=== PATIENT | female | born 1985 | race Caucasian/White ===

== ENCOUNTER 2017-08-17 16:51 | Emergency (ER) | payer SELFPAY ==
--- NOTE | 2017-08-17 17:17 | EDM.PDOC ---
ED HPI GENERAL MEDICAL PROBLEM - General Chief Complaint: Abdominal Pain Stated Complaint: ABDOMINAL PAIN Time Seen by Provider: 08/17/17 17:11 Source of Information: Reports: Patient History Limitations: Reports: No Limitations - History of Present Illness INITIAL COMMENTS - FREE TEXT/NARRATIVE: HISTORY AND PHYSICAL: [] 32-year-old female presenting with abdominal pain History of Present Illness: [] She reports diarrhea She reports that she has had problems with chronic constipation times she goes weeks without having a bowel movement becomes distended Review of Systems: As per history of present illness and below otherwise all systems reviewed and negative. Past medical history: As per history of present illness and as reviewed below otherwise noncontributory. Surgical history: As per history of present illness and as reviewed below otherwise noncontributory. Social history: No reported history of drug or alcohol abuse. Family history: As per history of present illness and as reviewed below otherwise noncontributory. Physical exam: alert pleasant woman who looks somewhat miserable she is not on control and does not know if she is or not. Answers questions in full sentences without any shortness of breath HEENT: Atraumatic, normocehpalic, pupils reactive, negative for conjunctival pallor or scleral icterus, mucous membranes moist, throat clear, neck supple, nontender, trachea midline. Lungs: Clear to auscultation, breath sounds equal bilaterally, chest non tender. Heart: S1S2, regular, negative for clicks, rubs, or JVD. Abdomen: Soft, nondistended, nontender. Negative for masses or hepatossplenmegaly. Negative for costovertebral tenderness. Pelvis: Stable nontender. Genitourinary: Deferred. Rectal: Deferred Extremities: Atraumatic, negative for cords or calf pain. Neurovascular unremarkable. Neuro: Awake, alert, oriented. Cranial nerves II through XII unremarkable. Cerebellum unremarkable. Motor and sensory unremarkable throughout. Exam nonfocal. Diagnostics: []CBC CMP abdominal flat and upright UA urine hCG Therapeutics: []IV fluids Zofran Impression: [#1 urinary tract infection/cystitis #2 intermitant constipation] Plan: []Home Use mixture of mineral oil, milk of magnesia, and Gaviscon daily Prescription will be sent to [facility] for your urinary tract infection Follow with your primary care provider Return to the emergency room as discussed and directed Definitive disposition and diagnosis as appropriate pending reevaluation and review of above. Onset: Gradual Duration: Day(s):, Getting Worse Location: Reports: Abdomen Quality: Reports: Ache, Throbbing Severity: Moderate Improves with: Reports: None Worsens with: Reports: None abdomen Pain Score (Numeric/FACES): 5 - Related Data Allergies Allergy/AdvReac Type Severity Reaction Status Date / Time No Known Allergies Allergy Verified 08/17/17 17:02 Home Meds: Home Meds Ciprofloxacin [Cipro 500 MG/5 ML Susp] 500 mg PO Q12HR #10 bottle 08/17/17 [Rx] Past Medical History - Past Health History Medical/Surgical History: Denies Medical/Surgical History Gastrointestinal History: Reports: Chronic Constipation - Infectious Disease History Infectious Disease History: Reports: Chicken Pox Social & Family History - Family History Other Dermatologic Family History: CA, Hepatits - Tobacco Use Smoking Status *Q: Never Smoker - Recreational Drug Use Recreational Drug Use: No ED ROS GENERAL - Review of Systems Review Of Systems: ROS reveals no pertinent complaints other than HPI. ED EXAM, GI/ABD - Physical Exam Exam: See Below (see dictation) Course - Vital Signs Last Recorded V/S: Last Vital Signs Temp 36.5 C 08/17/17 16:59 Pulse 92 08/17/17 16:59 Resp 18 08/17/17 16:59 BP 120/57 L 08/17/17 16:59 Pulse Ox 100 08/17/17 16:59 - Orders/Labs/Meds Orders: Active Orders 24 hr Category Date Time Status Abdomen 2V AP Flat Upright [CR] Stat Exams 08/17/17 17:13 Taken HCG QUALITATIVE,URINE [URCHEM] Stat Lab 08/17/17 17:38 Ordered UA W/MICROSCOPIC [URIN] Stat Lab 08/17/17 17:38 Ordered Labs: Laboratory Tests 08/17/17 08/17/17 08/17/17 Range/Units 17:24 17:24 17:38 WBC 12.46 H (4.0-11.0) K/uL RBC 4.89 (4.30-5.90) M/uL Hgb 14.8 (12.0-16.0) g/dL Hct 42.4 (36.0-46.0) % MCV 86.7 (80.0-98.0) fL MCH 30.3 (27.0-32.0) pg MCHC 34.9 (31.0-37.0) g/dL RDW Std Deviation 42.4 (28.0-62.0) fl RDW Coeff of Sergey 13 (11.0-15.0) % Plt Count 336 (150-400) K/uL MPV 10.00 (7.40-12.00) fL Neut % (Auto) 76.5 (48.0-80.0) % Lymph % (Auto) 12.0 L (16.0-40.0) % Franklin % (Auto) 10.2 (0.0-15.0) % Eos % (Auto) 1.1 (0.0-7.0) % Baso % (Auto) 0.2 (0.0-1.5) % Neut # (Auto) 9.5 H (1.4-5.7) K/uL Lymph # (Auto) 1.5 (0.6-2.4) K/uL Franklin # (Auto) 1.3 H (0.0-0.8) K/uL Eos # (Auto) 0.1 (0.0-0.7) K/uL Baso # (Auto) 0.0 (0.0-0.1) K/uL Nucleated RBC % 0.0 /100WBC Nucleated RBCs # 0 K/uL Sodium 134 L (136-145) mmol/L Potassium 4.0 (3.5-5.1) mmol/L Chloride 101 (98-107) mmol/L Carbon Dioxide 23.2 (21.0-32.0) mmol/L BUN 9 (7.0-18.0) mg/dL Creatinine 1.0 (0.6-1.0) mg/dL Est Cr Clr Drug Dosing 68.05 mL/min Estimated GFR (MDRD) > 60.0 ml/min Glucose 109 H (74-106) mg/dL Calcium 8.9 (8.5-10.1) mg/dL Total Bilirubin 0.3 (0.2-1.0) mg/dL AST 16 (15-37) IU/L ALT 18 (14-63) IU/L Alkaline Phosphatase 48 (46-116) U/L Total Protein 8.6 H (6.4-8.2) g/dL Albumin 4.1 (3.4-5.0) g/dL Globulin 4.5 H (2.0-3.5) g/dL Albumin/Globulin Ratio 0.9 L (1.3-2.8) Urine Color DARK YELLOW Urine Appearance CLOUDY Urine pH 5.5 (5.0-8.0) Ur Specific [place] >= 1.030 (1.001-1.035) Urine Protein 30 (NEGATIVE) mg/dL Urine Glucose (UA) NEGATIVE (NEGATIVE) mg/dL Urine Ketones NEGATIVE (NEGATIVE) mg/dL Urine Occult Blood LARGE H (NEGATIVE) Urine Nitrite NEGATIVE (NEGATIVE) Urine Bilirubin SMALL H (NEGATIVE) Urine Ictotest NEGATIVE Urine Urobilinogen 0.2 (<2.0) EU/dL Ur Leukocyte Esterase SMALL (NEGATIVE) Urine RBC 4-8 (0-2/HPF) Urine WBC 25-35 (0-5/HPF) Ur Epithelial Cells FEW (NONE-FEW) Amorphous Sediment LIGHT (NEGATIVE) Urine Bacteria 2+ H (NEGATIVE) Urine Mucus LIGHT (NONE-MOD) Urine HCG, Qual (NEGATIVE) 08/17/17 Range/Units 17:38 WBC (4.0-11.0) K/uL RBC (4.30-5.90) M/uL Hgb (12.0-16.0) g/dL Hct (36.0-46.0) % MCV (80.0-98.0) fL MCH (27.0-32.0) pg MCHC (31.0-37.0) g/dL RDW Std Deviation (28.0-62.0) fl RDW Coeff of Sergey (11.0-15.0) % Plt Count (150-400) K/uL MPV (7.40-12.00) fL Neut % (Auto) (48.0-80.0) % Lymph % (Auto) (16.0-40.0) % Franklin % (Auto) (0.0-15.0) % Eos % (Auto) (0.0-7.0) % Baso % (Auto) (0.0-1.5) % Neut # (Auto) (1.4-5.7) K/uL Lymph # (Auto) (0.6-2.4) K/uL Franklin # (Auto) (0.0-0.8) K/uL Eos # (Auto) (0.0-0.7) K/uL Baso # (Auto) (0.0-0.1) K/uL Nucleated RBC % /100WBC Nucleated RBCs # K/uL Sodium (136-145) mmol/L Potassium (3.5-5.1) mmol/L Chloride (98-107) mmol/L Carbon Dioxide (21.0-32.0) mmol/L BUN (7.0-18.0) mg/dL Creatinine (0.6-1.0) mg/dL Est Cr Clr Drug Dosing mL/min Estimated GFR (MDRD) ml/min Glucose (74-106) mg/dL Calcium (8.5-10.1) mg/dL Total Bilirubin (0.2-1.0) mg/dL AST (15-37) IU/L ALT (14-63) IU/L Alkaline Phosphatase (46-116) U/L Total Protein (6.4-8.2) g/dL Albumin (3.4-5.0) g/dL Globulin (2.0-3.5) g/dL Albumin/Globulin Ratio (1.3-2.8) Urine Color Urine Appearance Urine pH (5.0-8.0) Ur Specific [place] (1.001-1.035) Urine Protein (NEGATIVE) mg/dL Urine Glucose (UA) (NEGATIVE) mg/dL Urine Ketones (NEGATIVE) mg/dL Urine Occult Blood (NEGATIVE) Urine Nitrite (NEGATIVE) Urine Bilirubin (NEGATIVE) Urine Ictotest Urine Urobilinogen (<2.0) EU/dL Ur Leukocyte Esterase (NEGATIVE) Urine RBC (0-2/HPF) Urine WBC (0-5/HPF) Ur Epithelial Cells (NONE-FEW) Amorphous Sediment (NEGATIVE) Urine Bacteria (NEGATIVE) Urine Mucus (NONE-MOD) Urine HCG, Qual NEGATIVE (NEGATIVE) Departure - Departure Time of Disposition: 19:19 Disposition: Home, Self-Care 01 Condition: Good Clinical Impression: UTI (urinary tract infection) Qualifiers: Urinary tract infection type: acute cystitis Hematuria presence: with hematuria Qualified Code(s): N30.01 - Acute cystitis with hematuria - Discharge Information Prescriptions: Ciprofloxacin [Cipro 500 MG/5 ML Susp] 500 mg PO Q12HR #10 bottle Instructions: Urinary Tract Infection, Adult, Constipation, Adult, [id number] Referrals: PCP,None [Primary Care Provider] - Forms: ED Department Discharge Additional Instructions: The following information is given to patients seen in the emergency department who are being discharged to home. This information is to outline your options for follow-up care. We provide all patients seen in our emergency department with a follow-up referral. The need for follow-up, as well as the timing and circumstances, are variable depending upon the specifics of your emergency department visit. If you don't have a primary care physician on staff, we will provide you with a referral. We always advise you to contact your personal physician following an emergency department visit to inform them of the circumstance of the visit and for follow-up with them and/or the need for any referrals to a consulting specialist. The emergency department will also refer you to a specialist when appropriate. This referral assures that you have the opportunity for followup care with a specialist. All of these measure are taken in an effort to provide you with optimal care, which includes your followup. Under all circumstances we always encourage you to contact your private physician who remains a resource for coordinating your care. When calling for followup care, please make the office aware that this follow-up is from your recent emergency room visit. If for any reason you are refused follow-up, please contact the [facility] emergency department at and asked to speak to the emergency department charge nurse. You have a urinary tract infection Reported constipation Prescription for your infection has been sent to [place] pharmacy Ciprofloxacin 500 mg twice a day for 5 days Combination of mineral oil, Gaviscon, and milk of magnesia daily 1 tablespoon of each mix together and drink Follow up with your primary care provider Return to the emergency room as directed and discussed - My Orders Last 24 Hours: My Active Orders 08/17/17 17:13 Abdomen 2V AP Flat Upright [CR] Stat 08/17/17 17:38 HCG QUALITATIVE,URINE [URCHEM] Stat UA W/MICROSCOPIC [URIN] Stat - Assessment/Plan Last 24 Hours: My Active Orders 08/17/17 17:13 Abdomen 2V AP Flat Upright [CR] Stat 08/17/17 17:38 HCG QUALITATIVE,URINE [URCHEM] Stat UA W/MICROSCOPIC [URIN] Stat
[2017-08-17 18:01] LABS: CHLORIDE,CL 101 mmol/L (98-107); SODIUM,NA 134 mmol/L (136-145)
--- NOTE | 2017-08-18 13:37 | CR ---
EXAM DATE: 08/17/17 PATIENT'S AGE: 32 Patient: MARK ANTHONY FLOREZ Facility: [place], [place] Site . Site : 1985 Study: XRay Abdomen/Pelvis [id number]/25/2018 6:54:46 PM Ordering Physician: Doctor Scherer Final Report: INDICATION: Abdominal pain TECHNIQUE: Abdomen 3 view COMPARISON: None FINDINGS: Bowel: Nonobstructive bowel gas pattern. Soft tissues: No sign of soft tissue mass. No suspicious calcifications. Pelvic phleboliths. Bones: Unremarkable for age. IMPRESSION: Nonobstructive bowel gas pattern. Dictated by Napoleon Manriquez MD @ 08/17/2017 7:09:02 PM Dictated by: Napoleon Manriquez MD @ 08/17/2017 19:09:07 (Electronic Signature) Report Signed by Proxy. [facility] LAWR[facility] HEALTH SYSTEMGisella
== END 2017-08-17 19:33 | disposition home or self-care (01) ==
LOC: MW.ED 16:51
DX: N30.01 Acute cystitis with hematuria (principal); K59.00 Constipation, unspecified
CPT/HCPCS: 36415; 74019; 74019-26; 80053; 81001; 81025; 85025; 99284

== ENCOUNTER 2018-05-26 15:53 | Inpatient (IN) | payer SELFPAY ==
--- NOTE | 2018-05-26 17:44 | US ---
INDICATION: Decreased movement. Segun Rice contractions. TECHNIQUE: Ultrasound OB pelvis transabdominal. Real-time sen-scale imaging of the fetus was performed with color Doppler and spectral Doppler analysis of the umbilical artery without stress testing. COMPARISON: None. FINDINGS: Sonographic imaging demonstrates a single living intrauterine gestation. Fetus demonstrates a regular cardiac rate of 111 beats per minute. Fetus has a cephalic orientation. The placenta lies anterior. Amniotic fluid volume appears low with an MARTÍN of 4.76 cm. motion and tone were observed. breathing was not observed. IMPRESSION: Single viable intrauterine with a biophysical profile 09/30. breathing was not observed during the exam. Low MARTÍN measuring 4.76 cm. Dictated by Neno Calzada MD @ May 26 2018 5:38PM Signed by Dr. Neno Calzada @ May 26 2018 5:43PM
[2018-05-26] MEDS ORDERED: Water For Irrigation,Sterile 1,000 ML Container IRR PRN (17:48)
[2018-05-26] MEDS ORDERED: Sodium Chloride 0.9% 2.5 ML Syringe FLUSH PRN (17:48)
[2018-05-26] MEDS ORDERED: Methylergonovine 0.2 MG/1 ML Amp IM PRN (17:48)
[2018-05-26] MEDS ORDERED: Misoprostol 200 MCG Tab PO PRN (17:48)
[2018-05-26] MEDS ORDERED: Nalbuphine 10 MG/1 ML Vial IVPUSH PRN (17:48)
[2018-05-26] MEDS ORDERED: Carboprost Tromethamine 250 MCG/1 ML Amp IM PRN (17:48)
[2018-05-26] MEDS ORDERED: Terbutaline 1 MG/ML SDV SUBCUT PRN (17:48)
[2018-05-26] MEDS ORDERED: Lidocaine 1% 50 ML MDV INJECT PRN (17:48)
[2018-05-26] MEDS ORDERED: Sodium Chloride 0.9% 10 ML Syringe FLUSH PRN (17:48)
[2018-05-26] MEDS ORDERED: Butorphanol 1 MG/ML SDV IVPUSH PRN (17:48)
[2018-05-26] MEDS ORDERED: Tranexamic Acid 1,000 MG in Sodium Chloride 0.9% 100 ML IV PRN (17:48)
--- NOTE | 2018-05-26 17:55 | PCM.LDHP ---
L&D History of Present Illness - General Date of Service: 05/26/18 Admit Problem/Dx: Patient Status Order with Admit Dx/Problem 05/26/18 16:11 Patient Status [ADT] Routine Admission Diagnosis/Problem Admission Diagnosis/Problem 05/26/18 17:46 33yo EDC 06/19/2018 36 4/7wks, O+, RI, GBS unkwn, MARTÍN 4.8cm, low FHT baseline 110 bpm Source of Information: Patient History Limitations: Reports: No Limitations - History of Present Illness Improves with: Reports: None Worsens with: Reports: None Associated Symptoms: Reports: N - Related Data Allergies/Adverse Reactions: Allergies Allergy/AdvReac Type Severity Reaction Status Date / Time No Known Allergies Allergy Verified 08/17/17 17:02 Past Medical History - Past Health History Medical/Surgical History: Denies Medical/Surgical History Gastrointestinal History: Reports: Chronic Constipation - Infectious Disease History Infectious Disease History: Reports: Chicken Pox Social & Family History - Family History Other Dermatologic Family History: CA, Hepatits H&P Review of Systems - Review of Systems: Review Of Systems: See Below General: Reports: No Symptoms HEENT: Reports: No Symptoms Pulmonary: Reports: No Symptoms Cardiovascular: Reports: No Symptoms Gastrointestinal: Reports: No Symptoms Genitourinary: Reports: No Symptoms Musculoskeletal: Reports: No Symptoms Skin: Reports: No Symptoms Psychiatric: Reports: No Symptoms Neurological: Reports: No Symptoms Hematologic/Lymphatic: Reports: No Symptoms Immunologic: Reports: No Symptoms L&D Exam - Exam Exam: See Below - Vital Signs Weight: 71.668 kg - OB Specific Contraction Intensity: Mild Movement: Active Heart Tones: Present Heart Tones per Min: 110 Heart Rate (FHR) Variability: Moderate (6-25 bmp) Presentation: Vertex - Peañ Score Peña Score Cervix Position: Midposition Peña Score Consistency: Soft Peña Score Effacement: >80% Peña Score Dilation: 1-2 cm Peña Score Infant's Station: -1 ,0 Peña Score Total: 9 - Exam General: Alert, Oriented, Cooperative HEENT: Hearing Intact Lungs: Clear to Auscultation, Normal Respiratory Effort Cardiovascular: Regular Rate, Regular Rhythm, Normal S1, Normal S2 GI/Abdominal Exam: Soft, Non-Tender Rectal Exam: Deferred Genitourinary: Normal external exam, Normal bimanual exam, Cervical dilitation Back Exam: Normal Inspection, Full Range of Motion Extremities: Normal Inspection, Normal Range of Motion, Non-Tender, No Pedal Edema, Normal Capillary Refill Skin: Warm, Dry, Intact Neurological: Cranial Nerves Intact, Reflexes Equal Bilateral, Strength Equal Bilateral, Normal Speech, Normal Tone Psychiatric: Alert, Normal Affect, Normal Mood - Problem List (1) Supervision of normal IUP (intrauterine ) in multigravida SNOMED Code(s): 479498601, 608766207, 747564277 ICD Code: Z34.80 - ENCOUNTER FOR SUPRVSN OF NORMAL , UNSP TRIMESTER Status: Acute Priority: High Current Visit: Yes Qualifiers: Trimester: third trimester Qualified Code(s): Z34.83 - Encounter for supervision of other normal , third trimester (2) Oligohydramnios antepartum SNOMED Code(s): 947668593 ICD Code: O41.00X0 - OLIGOHYDRAMNIOS, UNSP TRIMESTER, NOT APPLICABLE OR UNSP Status: Acute Priority: High Current Visit: Yes Qualifiers: Fetus number: single or unspecified fetus Qualified Code(s): O41.00X0 - Oligohydramnios, unspecified trimester, not applicable or unspecified Problem List Initiated/Reviewed/Updated: Yes Orders Last 24hrs: Active Orders 24 hr Category Date Time Status Patient Status [ADT] Routine ADT 05/26/18 16:11 Active Non Stress Test [RC] PER UNIT ROUTINE Care 05/26/18 16:11 Active Up ad Neli [RC] ASDIRECTED Care 05/26/18 16:11 Active Vaginal Exam [RC] Click to Edit Care 05/26/18 16:11 Active Vital Signs [RC] PER UNIT ROUTINE Care 05/26/18 16:11 Active CULTURE GROUP B STREP [RM] Routine Lab 05/26/18 16:45 Received Resuscitation Status Routine Resus Stat 05/26/18 16:11 Ordered Assessment/Plan Comment:: IOL for Oligohydramnios A: 33yo EDC 06/19/2018 36 4/7wks, O+, RI, GBS unkwn, MARTÍN 4.8cm, low FHT baseline 110 bpm P: Admit, pitocin induction, amp for GBS unkwn, anticipate , Dr Beard agrees with POC.
[2018-05-26] MEDS ORDERED: Oxytocin/0.9 % Sodium Chloride 30 UNIT/500 ML BAG IV SCH ×2 (18:00)
[2018-05-26] MEDS ORDERED: Diphtheria,Pertussis(Acell),Tetanus Vaccine 0.5 ML Syringe IM ONE (19:01)
[2018-05-26] MEDS ORDERED: Ampicillin 2 GM in Sodium Chloride 0.9% 100 ML IV ONE (19:30)
[2018-05-26] MEDS: Lactated Ringers 1,000 ML IV SCH (19:42)
--- NOTE | 2018-05-26 22:15 | PCM.PREANE ---
Preanesthetic Assessment - Procedure Proposed Procedure: for labor epidural - Anesthesia/Transfusion/Family Hx Anesthesia History: Prior Anesthesia Without Reaction (dental surgery in office without problems No history of GA) Family History of Anesthesia Reaction: No Transfusion History: No Prior Transfusion(s) - Review of Systems General: No Symptoms (oligohydramnios, low FHT baseline (110/min), , 36.5 wks), Other (At the time of this interview, FHT was 150s (patient has been in house 24 hrs)) Pulmonary: No Symptoms Cardiovascular: No Symptoms (Heart murmur as a child which disappeared on its own after a few years. No signs or symptoms at present) Gastrointestinal: No Symptoms (constipation, chronic) Neurological: No Symptoms Other: Reports: None (36.5 weeks) - Physical Assessment NPO Status Date: 05/27/18 NPO Status Time: 10:00 (ice and water since then) Pulse: 81 (has had one liter LR IV recently) O2 Sat by Pulse Oximetry: 95 Respiratory Rate: 20 Blood Pressure: 109/56 Temperature: 0 C Vital Signs: 150s for FHT at this time Height: 1.6 m Weight: 71.668 kg ASA Class: 2E Mental Status: Alert & Oriented x3 Airway Class: Mallampati = 1 Dentition: Reports: Normal Dentition Thyro-Mental Finger Breadths: 2 Mouth Opening Finger Breadths: 3 ROM/Head Extension: Full Lungs: Clear to Auscultation, Normal Respiratory Effort Cardiovascular: Regular Rate, Regular Rhythm, No Murmurs - Lab Values: Laboratory Last Values WBC 14.24 K/uL (4.0-11.0) H 05/26/18 18:35 RBC 4.18 M/uL (4.30-5.90) L 05/26/18 18:35 Hgb 12.5 g/dL (12.0-16.0) 05/26/18 18:35 Hct 36.2 % (36.0-46.0) 05/26/18 18:35 MCV 86.6 fL (80.0-98.0) 05/26/18 18:35 MCH 29.9 pg (27.0-32.0) 05/26/18 18:35 MCHC 34.5 g/dL (31.0-37.0) 05/26/18 18:35 RDW Std Deviation 43.0 fl (28.0-62.0) 05/26/18 18:35 RDW Coeff of Sergey 14 % (11.0-15.0) 05/26/18 18:35 Plt Count 270 K/uL (150-400) 05/26/18 18:35 MPV 12.00 fL (7.40-12.00) 05/26/18 18:35 Nucleated RBC % 0.0 /100WBC 05/26/18 18:35 Nucleated RBCs # 0 K/uL 05/26/18 18:35 Blood Type O POSITIVE 05/26/18 18:35 Antibody Screen NEGATIVE 05/26/18 18:35 - Allergies Allergies/Adverse Reactions: Allergies Allergy/AdvReac Type Severity Reaction Status Date / Time No Known Allergies Allergy Verified 08/17/17 17:02 - Blood Blood Available: No Product(s) Available: None - Anesthesia Plan Pre-Op Medication Ordered: None - Acknowledgements Anesthesia Type Planned: Epidural (Plan: continuous labor epidural. discussed with patient and . All questions answered. Consent signed.) Pt an Appropriate Candidate for the Planned Anesthesia: Yes Alternatives and Risks of Anesthesia Discussed w Pt/Guardian: Yes Pt/Guardian Understands and Agrees with Anesthesia Plan: Yes PreAnesthesia Questionnaire - Past Health History Medical/Surgical History: Denies Medical/Surgical History Cardiovascular History: Reports: Heart Murmur Other Cardiovascular History: heart murmur as child 'that closed as an early teen' Gastrointestinal History: Reports: Chronic Constipation - Infectious Disease History Infectious Disease History: Reports: Chicken Pox - Past Surgical History HEENT Surgical History: Reports: Oral Surgery - SUBSTANCE USE Smoking Status *Q: Never Smoker Second Hand Smoke Exposure: Yes - CURRENT (IN HOUSE) MEDS Current Meds: Current Medications Butorphanol Tartrate (Stadol) 1 mg IVPUSH Q1H PRN PRN Reason: Pain Carboprost Tromethamine (Hemabate Ds) 250 mcg IM ASDIRECTED PRN PRN Reason: Post Hemorrhage Tranexamic Acid 1,000 mg/ (Sodium Chloride) 110 mls @ 660 mls/hr IV ONETIME PRN PRN Reason: Bleeding Lactated Ringer's (Ringers, Lactated) 1,000 mls @ 150 mls/hr IV ASDIRECTED AISLINN Last Admin: 05/26/18 19:42 Dose: 150 mls/hr Oxytocin/Sodium Chloride (Oxytocin 30 Unit/500 Ml-Ns) 30 unit in 500 mls @ 500 mls/hr IV TITRATE AISLINN Oxytocin/Sodium Chloride (Oxytocin 30 Unit/500 Ml-Ns) 30 unit in 500 mls @ 2 mls/hr IV TITRATE AISLINN; Protocol Last Titration: 05/26/18 20:28 Dose: 4 munits/min, 4 mls/hr Ampicillin Sodium 1 gm/ Sodium (Chloride) 50 mls @ 100 mls/hr IV Q6H AISLINN Lidocaine HCl (Xylocaine 1%) 50 ml INJECT ONETIME PRN PRN Reason: Laceration repair Methylergonovine Maleate (Methergine) 0.2 mg IM ASDIRECTED PRN PRN Reason: Post Hemorrhage Misoprostol (Cytotec) 200 mcg PO ONETIME PRN PRN Reason: Post Hemorrhage Nalbuphine HCl (Nubain) 10 mg IVPUSH Q1H PRN PRN Reason: Pain (severe 7-10) Sodium Chloride (Saline Flush) 10 ml FLUSH ASDIRECTED PRN PRN Reason: Keep Vein Open Sodium Chloride (Saline Flush) 2.5 ml FLUSH ASDIRECTED PRN PRN Reason: Keep Vein Open Sterile Water (Sterile Water For Irrigation) 1,000 ml IRR ASDIRECTED PRN PRN Reason: delivery Terbutaline Sulfate (Brethine) 0.25 mg SUBCUT ASDIRECTED PRN PRN Reason: Tacysystole Discontinued Medications Diphtheria/Tetanus/Acell Pertussis (Adacel) 0.5 ml IM .ONCE ONE Stop: 05/26/18 19:02 Ampicillin Sodium 2 gm/ Sodium (Chloride) 100 mls @ 200 mls/hr IV ONETIME ONE Stop: 05/26/18 19:59 Last Admin: 05/26/18 19:42 Dose: 200 mls/hr
[2018-05-27] MEDS: Ampicillin 1 GM in Sodium Chloride 0.9% 50 ML IV SCH ×3 (00:59→13:21)
[2018-05-27] MEDS: Lactated Ringers 1,000 ML IV SCH ×4 (03:20→23:07)
[2018-05-27] MEDS ORDERED: Lidocaine HCl/EPINEPHrine 5 ML IJ ONE (12:44)
[2018-05-27] MEDS ORDERED: Lidocaine 2% 5 ML SDV ONE ×5 (13:46→19:29)
[2018-05-27] MEDS ORDERED: Propofol 200 MG/20 ML SDV ONE (17:57)
[2018-05-27] MEDS ORDERED: ceFAZolin 1 GM Vial ONE ×2 (17:57→17:58)
[2018-05-27] MEDS ORDERED: Sodium Chloride 0.9% 20 ML ONE (17:58)
[2018-05-27] MEDS ORDERED: Citric Acid/Sodium Citrate Solution 30 ML Cup PO ONE (18:06)
[2018-05-27] MEDS ORDERED: Nalbuphine 10 MG/1 ML Vial IVPUSH PRN ×2 (18:10→19:50)
[2018-05-27] MEDS ORDERED: Lactated Ringers 1,000 ML IV SCH (18:15)
[2018-05-27] MEDS ORDERED: Oxytocin/0.9 % Sodium Chloride 30 UNIT/500 ML BAG IV SCH (18:15)
[2018-05-27] MEDS ORDERED: Morphine PF 10 MG/10 ML SDV ONE (19:07)
[2018-05-27] MEDS ORDERED: fentaNYL 100 MCG/2 ML SDV ONE (19:17)
[2018-05-27] MEDS ORDERED: Octyl 2-Cyanoacrylate 1 Tube ONE (19:19)
[2018-05-27] MEDS ORDERED: Ondansetron 4 MG/2 ML SDV IVPUSH PRN (19:22)
[2018-05-27] MEDS ORDERED: Bisacodyl 10 MG Supp RECTAL PRN (19:22)
[2018-05-27] MEDS ORDERED: Acetaminophen/oxyCODONE 325-5 MG Tab PO PRN ×2 (19:22)
[2018-05-27] MEDS ORDERED: diphenhydrAMINE 50 MG/ML SDV IVPUSH PRN (19:22)
[2018-05-27] MEDS ORDERED: Lanolin 100% Cream 7 GM Tube TOP PRN (19:22)
--- NOTE | 2018-05-27 19:27 | PCM.OPNOTE ---
- General Post-Op/Procedure Note Date of Surgery/Procedure: 05/27/18 Operative Procedure(s): Primary c/section Pre Op Diagnosis: [id number] wks non ressurance FAR Post-Op Diagnosis: Same Anesthesia Technique: Epidural Primary Surgeon: Juan Luis Beard Funding Coordinator: Radha Mathews EBL in mLs: 700 Complications: None Condition: Good
[2018-05-27] MEDS ORDERED: Ketorolac 30 MG/ML SDV ONE (19:33)
--- NOTE | 2018-05-27 19:55 | PCM.SN ---
- Free Text/Narrative Note: patient has good functioning epidural for labor. Decision to go to for failure to progress and some late decels. Epidural woriking well. Re -dosed with 15 ml 2% lido incrementally with stable BP and HR and FHT. To OR.
[2018-05-27] MEDS ORDERED: Meperidine PF 25 MG/ML Syringe IVPUSH PRN (20:00)
[2018-05-27] MEDS ORDERED: Ondansetron 4 MG/2 ML SDV IVPUSH ONE (20:00)
--- NOTE | 2018-05-27 20:19 | PCM.POSTAN ---
POST ANESTHESIA ASSESSMENT - MENTAL STATUS Mental Status: Alert, Oriented - VITAL SIGNS Pulse Rate: 77 SaO2: 98 Resp Rate: 18 Blood Pressure: 119/69 Temperature: 36.7 C - RESPIRATORY Respiratory Status: Respiratory Rate WNL, Airway Patent, O2 Saturation Stable - CARDIOVASCULAR CV Status: Pulse Rate WNL, Blood Pressure Stable - GASTROINTESTINAL GI Status: No Symptoms - PAIN Pain Score: 6 (no pain, but "just like a burning". Resting comfortably.) - POST OP HYDRATION Hydration Status: Adequate & Stable - OBSERVATIONS Free Text/Narrative:: awake, alert, vitals stable. epidural catheter removed in OR intact. Patient has no pain--just a "burning" on left side. Has had 3mg epidural duramorph and 6mg morphine IV in addition to 100 mcg fentanyl IV (all in OR). Anxious pre, intra and post op. Doing very well. Analgesia level below T 10.
--- NOTE | 2018-05-27 20:33 | OR ---
SURGEON: Juan Luis Beard MD DATE OF PROCEDURE: PREOPERATIVE DIAGNOSES: 1. Intrauterine 36 weeks plus. 2. Nonreassuring heart rate. POSTOPERATIVE DIAGNOSES: 1. Intrauterine 36 weeks plus. 2. Nonreassuring heart rate. OPERATION PERFORMED: Primary low transverse section. FEED MIXER: Radha Mathews CNM. ANESTHESIA: Epidural. ANESTHESIOLOGIST: Dr. Wood. ESTIMATED BLOOD LOSS: 700 mL. COMPLICATIONS: None, however, there is mild extension laterally of the low transverse section incision. INDICATIONS FOR SURGERY: This patient is para 1-0-0-1, she is 36 weeks plus. She is followed in our clinic. She came to Labor and Delivery, is complaining of having contraction. However, when the patient was placed on the monitor, she had a flat heart rate, so biophysical profile was performed and she had decreased amniotic fluid and she has 4/8 biophysical profile as grading. The patient was admitted with intention of induction and she is induced with Pitocin. Initially she responded to it. She progressed to 4 cm, complete vertex, and zero station. However, the patient again started having a flat heart rate with a nonreassuring heart rate with variable deceleration and she did not tolerate the Pitocin well and she is remote from delivery and decision made to do a primary low-transverse section. PROCEDURE IN DETAIL: The patient was brought to the OR, properly identified, and after adequate level of the epidural anesthesia with a Bustamante catheter in the bladder, the patient was prepped and draped in sterile fashion, usual low transverse Pfannenstiel skin incision was done. Sara fascia and rectus fascia were opened in the direction of the incision. The 2 recti muscles were and peritoneal cavity was entered and bladder flap raised in the usual manner pushing the bladder away from the lower uterine segment. Low transverse uterine incision was done, extended manually in the fetus. The fetus head was in the vertex, however, it was engaged deeply in the vagina, so I maneuvered to pull the head from the vagina and delivered out and once the fetus was delivered, cried immediately, handed to Dr. Castillo, the welder fabricator who was present for the resuscitation. Later on the score reported to be 7 and 9. The placenta delivered spontaneous, complete, and intact, and I started repairing of the lower uterine segment. I noticed that there is a left lateral extension of the section incision that was identified and the lower uterine segment was repaired with 2-0 Vicryl continuous interlocking with hemostasis. Then reperitonealization done with 3-0 Vicryl continuous and then the peritoneal cavity evacuated completely from all blood and blood clot and closed with 3-0 Vicryl continuous and the rectus fascia closed with #1 PDS continuous, Sara's fascia with 3-0 Vicryl continuous. The skin closed in a subcuticular fashion with 3-0 Vicryl and Dermabond. Instrument and sponge count were correct. The patient tolerated the procedure well, went to recovery room in stable general condition. CHARLETTE CUNNINGHAM /[id number]
[2018-05-28] MEDS: Ketorolac 30 MG/ML SDV IVPUSH SCH ×6 (01:41→20:02)
[2018-05-28] MEDS: Ampicillin 1 GM in Sodium Chloride 0.9% 50 ML IV SCH ×2 (03:55→17:05)
[2018-05-28] MEDS ORDERED: Morphine 4 MG/ML Syringe IVPUSH ONE (06:42)
[2018-05-28] MEDS: Docusate Sodium 100 MG Cap PO SCH ×3 (06:56→20:02)
[2018-05-28] MEDS: Lactated Ringers 1,000 ML IV SCH (07:11)
--- NOTE | 2018-05-28 08:35 | PCM.PNPP ---
- General Info Date of Service: 05/28/18 Admission Dx/Problem (Free Text): Patient Status Order with Admit Dx/Problem 05/26/18 16:11 Patient Status [ADT] Routine Admission Diagnosis/Problem Admission Diagnosis/Problem 05/26/18 17:46 33yo EDC 06/19/2018 36 4/7wks, O+, RI, GBS unkwn, MARTÍN 4.8cm, low FHT baseline 110 bpm Functional Status: Reports: Pain Controlled, Tolerating Diet, Ambulating, Other (payaley) - Review of Systems General: Reports: No Symptoms HEENT: Reports: No Symptoms Pulmonary: Reports: No Symptoms Cardiovascular: Reports: No Symptoms Gastrointestinal: Reports: No Symptoms Genitourinary: Reports: No Symptoms Musculoskeletal: Reports: No Symptoms Skin: Reports: No Symptoms Neurological: Reports: No Symptoms Psychiatric: Reports: No Symptoms - General Info Date of Service: 05/28/18 - Patient Data Vital Signs - Most Recent: Last Vital Signs Temp 37.2 C 05/28/18 08:00 Pulse 89 05/28/18 08:00 Resp 16 05/28/18 08:00 BP 108/52 L 05/28/18 08:00 Pulse Ox 98 05/28/18 08:00 Weight - Most Recent: 71.668 kg I&O - Last 24 Hours: Intake & Output 05/27/18 05/28/18 05/28/18 22:59 06:59 14:59 Intake Total 1900 995 Output Total 900 200 Balance 1000 795 Lab Results - Last 24 Hours: Laboratory Results - last 24 hr 05/28/18 Range/Units 05:34 Hgb 8.8 L (12.0-16.0) g/dL Hct 26.0 L (36.0-46.0) % Med Orders - Current: Current Medications Bisacodyl (Dulcolax) 10 mg RECTAL ONETIME PRN PRN Reason: Constipation Butorphanol Tartrate (Stadol) 1 mg IVPUSH Q1H PRN PRN Reason: Pain Carboprost Tromethamine (Hemabate Ds) 250 mcg IM ASDIRECTED PRN PRN Reason: Post Hemorrhage Diphenhydramine HCl (Benadryl) 25 mg IVPUSH Q6H PRN PRN Reason: Itching or Nausea Docusate Sodium (Colace) 100 mg PO BID [facility] Last Admin: 05/28/18 06:56 Dose: Not Given Emollient Ointment (Lansinoh Hpa) 0 gm TOP ASDIRECTED PRN PRN Reason: Sore Nipples Tranexamic Acid 1,000 mg/ (Sodium Chloride) 110 mls @ 660 mls/hr IV ONETIME PRN PRN Reason: Bleeding Lactated Ringer's (Ringers, Lactated) 1,000 mls @ 150 mls/hr IV ASDIRECTED [facility] Last Admin: 05/27/18 14:14 Dose: 150 mls/hr Oxytocin/Sodium Chloride (Oxytocin 30 Unit/500 Ml-Ns) 30 unit in 500 mls @ 500 mls/hr IV TITRATE [facility] Oxytocin/Sodium Chloride (Oxytocin 30 Unit/500 Ml-Ns) 30 unit in 500 mls @ 2 mls/hr IV TITRATE [facility]; Protocol Last Titration: 05/27/18 17:28 Dose: 0 munits/min, 0 mls/hr Ampicillin Sodium 1 gm/ Sodium (Chloride) 50 mls @ 100 mls/hr IV Q6H [facility] Last Admin: 05/28/18 03:55 Dose: Not Given Oxytocin/Sodium Chloride (Oxytocin 30 Unit/500 Ml-Ns) 30 unit in 500 mls @ 250 mls/hr IV TITRATE [facility] Lactated Ringer's (Ringers, Lactated) 1,000 mls @ 500 mls/hr IV BOLUS [facility] Last Admin: 05/27/18 18:35 Dose: 500 mls/hr Lactated Ringer's (Ringers, Lactated) 1,000 mls @ 125 mls/hr IV ASDIRECTED [facility] Last Admin: 05/28/18 07:11 Dose: 125 mls/hr Ibuprofen (Motrin) 800 mg PO Q8H PRN PRN Reason: mild pain or fever Ketorolac Tromethamine (Toradol) 30 mg IVPUSH Q6H [facility] Stop: 05/28/18 19:31 Last Admin: 05/28/18 07:49 Dose: 30 mg Lidocaine HCl (Xylocaine 1%) 50 ml INJECT ONETIME PRN PRN Reason: Laceration repair Meperidine HCl (Demerol) 12.5 mg IVPUSH ONETIME PRN PRN Reason: shivering in PACU Methylergonovine Maleate (Methergine) 0.2 mg IM ASDIRECTED PRN PRN Reason: Post Hemorrhage Misoprostol (Cytotec) 200 mcg PO ONETIME PRN PRN Reason: Post Hemorrhage Nalbuphine HCl (Nubain) 10 mg IVPUSH ASDIRECTED PRN PRN Reason: Pain (severe 7-10) Nalbuphine HCl (Nubain) 5 mg IVPUSH Q3H PRN PRN Reason: Pruritis Stop: 05/28/18 19:53 Ondansetron HCl (Zofran) 4 mg IVPUSH Q4H PRN PRN Reason: Nausea/Vomiting Oxycodone/Acetaminophen (Percocet 325-5 Mg) 1 tab PO Q4H PRN PRN Reason: Pain (moderate 4-6) Oxycodone/Acetaminophen (Percocet 325-5 Mg) 2 tab PO Q4H PRN PRN Reason: Pain (moderate 4-6) Sodium Chloride (Saline Flush) 10 ml FLUSH ASDIRECTED PRN PRN Reason: Keep Vein Open Sodium Chloride (Saline Flush) 2.5 ml FLUSH ASDIRECTED PRN PRN Reason: Keep Vein Open Sterile Water (Sterile Water For Irrigation) 1,000 ml IRR ASDIRECTED PRN PRN Reason: delivery Terbutaline Sulfate (Brethine) 0.25 mg SUBCUT ASDIRECTED PRN PRN Reason: Tacysystole Discontinued Medications Cefazolin Sodium (Ancef) Confirm Administered Dose 1 gm .ROUTE .STK-MED ONE Stop: 05/27/18 17:58 Cefazolin Sodium (Ancef) Confirm Administered Dose 1 gm .ROUTE .STK-MED ONE Stop: 05/27/18 17:59 Citric Acid/Sodium Citrate (Bicitra Solution) 30 ml PO ONETIME ONE Stop: 05/27/18 18:07 Last Admin: 05/27/18 18:32 Dose: 30 ml Diphtheria/Tetanus/Acell Pertussis (Adacel) 0.5 ml IM .ONCE ONE Stop: 05/26/18 19:02 Fentanyl (Sublimaze) Confirm Administered Dose 100 mcg .ROUTE .STK-MED ONE Stop: 05/27/18 19:18 Ampicillin Sodium 2 gm/ Sodium (Chloride) 100 mls @ 200 mls/hr IV ONETIME ONE Stop: 05/26/18 19:59 Last Admin: 05/26/18 19:42 Dose: 200 mls/hr Fentanyl/Bupivacaine HCl (Fgzxokko-Hedue-Bn 2 Mcg/Ml-0.125%) Confirm Administered Dose 100 mls @ as directed .ROUTE .ST-MED ONE Stop: 05/27/18 12:44 Last Admin: 05/28/18 00:55 Dose: Not Given Sodium Chloride (Normal Saline) Confirm Administered Dose 20 mls @ as directed .ROUTE .ST-MED ONE Stop: 05/27/18 17:59 Ketorolac Tromethamine (Toradol) Confirm Administered Dose 30 mg .ROUTE .STK- MED ONE Stop: 05/27/18 19:34 Last Admin: 05/27/18 20:11 Dose: 30 mg Lidocaine (Xylocaine-Mpf 2%) Confirm Administered Dose 5 ml .ROUTE .[facility]-MED ONE Stop: 05/27/18 13:47 Last Admin: 05/28/18 00:56 Dose: Not Given Lidocaine (Xylocaine-Mpf 2%) Confirm Administered Dose 5 ml .ROUTE .ST-MED ONE Stop: 05/27/18 17:58 Lidocaine (Xylocaine-Mpf 2%) Confirm Administered Dose 5 ml .ROUTE .STK-MED ONE Stop: 05/27/18 17:58 Lidocaine (Xylocaine-Mpf 2%) Confirm Administered Dose 5 ml .ROUTE .STK-MED ONE Stop: 05/27/18 17:58 Lidocaine (Xylocaine-Mpf 2%) Confirm Administered Dose 5 ml .ROUTE .ST-MED ONE Stop: 05/27/18 19:30 Lidocaine/Epinephrine (Lidocaine 1.5%-Epi 1:200,000) Confirm Administered Dose 5 ml IJ .ST-MED ONE Stop: 05/27/18 12:45 Last Admin: 05/28/18 00:55 Dose: Not Given Morphine Sulfate (Duramorph Pf) Confirm Administered Dose 10 mg .ROUTE .STK-MED ONE Stop: 05/27/18 19:08 Morphine Sulfate (Morphine) 4 mg IVPUSH ONETIME ONE Stop: 05/28/18 06:43 Last Admin: 05/28/18 07:05 Dose: 4 mg Nalbuphine HCl (Nubain) 10 mg IVPUSH Q1H PRN PRN Reason: Pain (severe 7-10) Octyl Cyanoacrylate (Dermabond Advance) Confirm Administered Dose 1 applic .ROUTE .STK-MED ONE Stop: 05/27/18 19:20 Ondansetron HCl (Zofran) 4 mg IVPUSH ONETIME ONE Stop: 05/27/18 20:01 Propofol (Diprivan 20 Ml) Confirm Administered Dose 200 mg .ROUTE .STK-MED ONE Stop: 05/27/18 17:58 - Infant Interaction Disposition, : [place] to Nursery Interaction: Holding Feeding: Breastfed Infant; Nursed Well Support Person: - Recovery Exam Fundal Tone: Firm Fundal Level: 1 Fingerbreadths Below Umbilicus Fundal Placement: Midline Lochia Amount: Scant Lochia Color: Rubra/Red Perineum Description: Intact, Minimal Bruising/Swelling Episiotomy/Laceration: None Bladder Status: Indwelling Catheter in Place Urinary Elimination: Indwelling Catheter - Exam General: Alert, Oriented, Cooperative, No Acute Distress Lungs: Clear to Auscultation, Normal Respiratory Effort Cardiovascular: Regular Rate, Regular Rhythm, No Murmurs GI/Abdominal Exam: Normal Bowel Sounds, Soft Extremities: Normal Inspection, Normal Range of Motion, Non-Tender, No Pedal Edema, Normal Capillary Refill Skin: Warm, Dry, Intact Wound/Incisions: Healing Well, Dressing Dry and Intact Neurological: No New Focal Deficit, Normal Speech, Normal Tone, Strength Equal Bilateral Psy/Mental Status: Alert, Normal Affect, Normal Mood - Problem List & Annotations (1) Supervision of normal IUP (intrauterine ) in multigravida SNOMED Code(s): 709987688, 494990521, 139051789 Code(s): Z34.80 - ENCOUNTER FOR SUPRVSN OF NORMAL , UNSP TRIMESTER Status: Acute Priority: High Current Visit: Yes Qualifiers: Trimester: third trimester Qualified Code(s): Z34.83 - Encounter for supervision of other normal , third trimester (2) Oligohydramnios antepartum SNOMED Code(s): 619465090 Code(s): O41.00X0 - OLIGOHYDRAMNIOS, UNSP TRIMESTER, NOT APPLICABLE OR UNSP Status: Acute Priority: High Current Visit: Yes Qualifiers: Fetus number: single or unspecified fetus Qualified Code(s): O41.00X0 - Oligohydramnios, unspecified trimester, not applicable or unspecified (3) delivery due to maternal disorder, delivered, curr hospitaliz SNOMED Code(s): 968467184 Code(s): O99.89 - OTH DISEASES AND CONDITIONS COMPL PREG/CHLDBRTH Status: Acute Priority: High Current Visit: Yes - Problem List Review Problem List Initiated/Reviewed/Updated: Yes - Plan Plan:: IOL for Oligohydramnios A: 33yo EDC 06/19/2018 36 4/7wks, O+, RI, GBS unkwn, MARTÍN 4.8cm, low FHT baseline 110 bpm P: Admit, pitocin induction, amp for GBS unkwn, anticipate , Dr Beard agrees with POC. PPD#1 A: VSS, AF, FF 2bu, lochia small, dressing dry/intact, jain to bsb, stood at bs x1. P: Routine pp plan
--- NOTE | 2018-05-28 12:06 | PCM48HPAN ---
Post Anesthesia Note - EVALUATION WITHIN 48HRS OF ANESTHETIC Vital Signs in Normal Range: Yes Patient Participated in Evaluation: Yes Respiratory Function Stable: Yes Airway Patent: Yes Cardiovascular Function Stable: Yes Hydration Status Stable: Yes Pain Control Satisfactory: Yes (patient had 3mg duramorph epidurally for C- setion. Subsequently had torado) Nausea and Vomiting Control Satisfactory: Yes Pulse Rate: 77 SaO2: 96 Resp Rate: 16 Temperature: 36.7 C Blood Pressure: 119/69 - COMMENTS/OBSERVATIONS Free Text/Narrative:: patient had 3mg Duramorph epidurally during . Subsequently had Toradol for pain. This morning required 4mg Morphine IV to get pain under control. mentioned yesterday that she (pt) has "no pain tolerance". doing well otherwise. Pain is tolerable at this time.
[2018-05-28] MEDS ORDERED: Meperidine PF 50 MG/ML Syringe IVPUSH PRN (16:31)
[2018-05-29] MEDS: Ibuprofen 800 MG Tab PO PRN ×2 (02:39→14:03)
[2018-05-29] MEDS: Ampicillin 1 GM in Sodium Chloride 0.9% 50 ML IV SCH (05:06)
--- NOTE | 2018-05-29 08:15 | PCM.PNPP ---
- General Info Date of Service: 05/29/18 Admission Dx/Problem (Free Text): Patient Status Order with Admit Dx/Problem 05/26/18 16:11 Patient Status [ADT] Routine Admission Diagnosis/Problem Admission Diagnosis/Problem 05/26/18 17:46 33yo EDC 06/19/2018 36 4/7wks, O+, RI, GBS unkwn, MARTÍN 4.8cm, low FHT baseline 110 bpm Functional Status: Reports: Pain Controlled, Tolerating Diet, Ambulating, Urinating - Review of Systems General: Reports: No Symptoms HEENT: Reports: No Symptoms Pulmonary: Reports: No Symptoms Cardiovascular: Reports: No Symptoms Gastrointestinal: Reports: No Symptoms Genitourinary: Reports: No Symptoms Musculoskeletal: Reports: No Symptoms Skin: Reports: No Symptoms Neurological: Reports: No Symptoms Psychiatric: Reports: No Symptoms - General Info Date of Service: 05/29/18 - Patient Data Vital Signs - Most Recent: Last Vital Signs Temp 36.2 C 05/29/18 08:02 Pulse 92 05/29/18 08:02 Resp 16 05/29/18 08:02 BP 101/52 L 05/29/18 08:02 Pulse Ox 96 05/29/18 08:02 Weight - Most Recent: 71.668 kg I&O - Last 24 Hours: Intake & Output 05/28/18 05/29/18 05/29/18 22:59 06:59 14:59 Output Total 350 Balance -350 Med Orders - Current: Current Medications Bisacodyl (Dulcolax) 10 mg RECTAL ONETIME PRN PRN Reason: Constipation Butorphanol Tartrate (Stadol) 1 mg IVPUSH Q1H PRN PRN Reason: Pain Carboprost Tromethamine (Hemabate Ds) 250 mcg IM ASDIRECTED PRN PRN Reason: Post Hemorrhage Diphenhydramine HCl (Benadryl) 25 mg IVPUSH Q6H PRN PRN Reason: Itching or Nausea Docusate Sodium (Colace) 100 mg PO BID [facility] Last Admin: 05/28/18 20:02 Dose: 100 mg Emollient Ointment (Lansinoh Hpa) 0 gm TOP ASDIRECTED PRN PRN Reason: Sore Nipples Tranexamic Acid 1,000 mg/ (Sodium Chloride) 110 mls @ 660 mls/hr IV ONETIME PRN PRN Reason: Bleeding Lactated Ringer's (Ringers, Lactated) 1,000 mls @ 150 mls/hr IV ASDIRECTED [facility] Last Admin: 05/27/18 14:14 Dose: 150 mls/hr Oxytocin/Sodium Chloride (Oxytocin 30 Unit/500 Ml-Ns) 30 unit in 500 mls @ 500 mls/hr IV TITRATE [facility] Oxytocin/Sodium Chloride (Oxytocin 30 Unit/500 Ml-Ns) 30 unit in 500 mls @ 2 mls/hr IV TITRATE [facility]; Protocol Last Titration: 05/27/18 17:28 Dose: 0 munits/min, 0 mls/hr Ampicillin Sodium 1 gm/ Sodium (Chloride) 50 mls @ 100 mls/hr IV Q6H [facility] Last Admin: 05/29/18 05:06 Dose: Not Given Oxytocin/Sodium Chloride (Oxytocin 30 Unit/500 Ml-Ns) 30 unit in 500 mls @ 250 mls/hr IV TITRATE [facility] Lactated Ringer's (Ringers, Lactated) 1,000 mls @ 500 mls/hr IV BOLUS [facility] Last Admin: 05/27/18 18:35 Dose: 500 mls/hr Lactated Ringer's (Ringers, Lactated) 1,000 mls @ 125 mls/hr IV ASDIRECTED [facility] Last Admin: 05/28/18 07:11 Dose: 125 mls/hr Ibuprofen (Motrin) 800 mg PO Q8H PRN PRN Reason: mild pain or fever Last Admin: 05/29/18 02:39 Dose: 800 mg Lidocaine HCl (Xylocaine 1%) 50 ml INJECT ONETIME PRN PRN Reason: Laceration repair Meperidine HCl (Demerol) 12.5 mg IVPUSH ONETIME PRN PRN Reason: shivering in PACU Methylergonovine Maleate (Methergine) 0.2 mg IM ASDIRECTED PRN PRN Reason: Post Hemorrhage Misoprostol (Cytotec) 200 mcg PO ONETIME PRN PRN Reason: Post Hemorrhage Nalbuphine HCl (Nubain) 10 mg IVPUSH ASDIRECTED PRN PRN Reason: Pain (severe 7-10) Ondansetron HCl (Zofran) 4 mg IVPUSH Q4H PRN PRN Reason: Nausea/Vomiting Oxycodone/Acetaminophen (Percocet 325-5 Mg) 1 tab PO Q4H PRN PRN Reason: Pain (moderate 4-6) Last Admin: 05/29/18 06:11 Dose: 1 tab Oxycodone/Acetaminophen (Percocet 325-5 Mg) 2 tab PO Q4H PRN PRN Reason: Pain (moderate 4-6) Sodium Chloride (Saline Flush) 10 ml FLUSH ASDIRECTED PRN PRN Reason: Keep Vein Open Sodium Chloride (Saline Flush) 2.5 ml FLUSH ASDIRECTED PRN PRN Reason: Keep Vein Open Sterile Water (Sterile Water For Irrigation) 1,000 ml IRR ASDIRECTED PRN PRN Reason: delivery Terbutaline Sulfate (Brethine) 0.25 mg SUBCUT ASDIRECTED PRN PRN Reason: Tacysystole Discontinued Medications Cefazolin Sodium (Ancef) Confirm Administered Dose 1 gm .ROUTE .STK-MED ONE Stop: 05/27/18 17:58 Cefazolin Sodium (Ancef) Confirm Administered Dose 1 gm .ROUTE .STK-MED ONE Stop: 05/27/18 17:59 Citric Acid/Sodium Citrate (Bicitra Solution) 30 ml PO ONETIME ONE Stop: 05/27/18 18:07 Last Admin: 05/27/18 18:32 Dose: 30 ml Diphtheria/Tetanus/Acell Pertussis (Adacel) 0.5 ml IM .ONCE ONE Stop: 05/26/18 19:02 Fentanyl (Sublimaze) Confirm Administered Dose 100 mcg .ROUTE .STK-MED ONE Stop: 05/27/18 19:18 Ampicillin Sodium 2 gm/ Sodium (Chloride) 100 mls @ 200 mls/hr IV ONETIME ONE Stop: 05/26/18 19:59 Last Admin: 05/26/18 19:42 Dose: 200 mls/hr Fentanyl/Bupivacaine HCl (Ldvurepb-Bpkxi-Od 2 Mcg/Ml-0.125%) Confirm Administered Dose 100 mls @ as directed .ROUTE .STK-MED ONE Stop: 05/27/18 12:44 Last Admin: 05/28/18 00:55 Dose: Not Given Sodium Chloride (Normal Saline) Confirm Administered Dose 20 mls @ as directed .ROUTE .STK-MED ONE Stop: 05/27/18 17:59 Ketorolac Tromethamine (Toradol) 30 mg IVPUSH Q6H [facility] Stop: 05/28/18 19:31 Last Admin: 05/28/18 20:02 Dose: 30 mg Ketorolac Tromethamine (Toradol) Confirm Administered Dose 30 mg .ROUTE .STK- MED ONE Stop: 05/27/18 19:34 Last Admin: 05/27/18 20:11 Dose: 30 mg Lidocaine (Xylocaine-Mpf 2%) Confirm Administered Dose 5 ml .ROUTE .STK-MED ONE Stop: 05/27/18 13:47 Last Admin: 05/28/18 00:56 Dose: Not Given Lidocaine (Xylocaine-Mpf 2%) Confirm Administered Dose 5 ml .ROUTE .STK-MED ONE Stop: 05/27/18 17:58 Lidocaine (Xylocaine-Mpf 2%) Confirm Administered Dose 5 ml .ROUTE .STK-MED ONE Stop: 05/27/18 17:58 Lidocaine (Xylocaine-Mpf 2%) Confirm Administered Dose 5 ml .ROUTE .STK-MED ONE Stop: 05/27/18 17:58 Lidocaine (Xylocaine-Mpf 2%) Confirm Administered Dose 5 ml .ROUTE .STK-MED ONE Stop: 05/27/18 19:30 Lidocaine/Epinephrine (Lidocaine 1.5%-Epi 1:200,000) Confirm Administered Dose 5 ml IJ .STK-MED ONE Stop: 05/27/18 12:45 Last Admin: 05/28/18 00:55 Dose: Not Given Meperidine HCl (Demerol) 12.5 mg IVPUSH ONETIME PRN PRN Reason: shivering in PACU Morphine Sulfate (Duramorph Pf) Confirm Administered Dose 10 mg .ROUTE .STK-MED ONE Stop: 05/27/18 19:08 Morphine Sulfate (Morphine) 4 mg IVPUSH ONETIME ONE Stop: 05/28/18 06:43 Last Admin: 05/28/18 07:05 Dose: 4 mg Nalbuphine HCl (Nubain) 10 mg IVPUSH Q1H PRN PRN Reason: Pain (severe 7-10) Nalbuphine HCl (Nubain) 5 mg IVPUSH Q3H PRN PRN Reason: Pruritis Stop: 05/28/18 19:53 Octyl Cyanoacrylate (Dermabond Advance) Confirm Administered Dose 1 applic .ROUTE .STK-MED ONE Stop: 05/27/18 19:20 Ondansetron HCl (Zofran) 4 mg IVPUSH ONETIME ONE Stop: 05/27/18 20:01 Propofol (Diprivan 20 Ml) Confirm Administered Dose 200 mg .ROUTE .STK-MED ONE Stop: 05/27/18 17:58 - Interaction Infant Disposition, : to Nursery Infant Interaction: Unable to Hold Infant at this Time Feeding: Breastfed ; Nursed Well Support Person: - Recovery Exam Fundal Tone: Firm Fundal Level: At Umbilicus Fundal Placement: Midline Lochia Amount: Scant Lochia Color: Rubra/Red Perineum Description: Intact, Minimal Bruising/Swelling Episiotomy/Laceration: None Bladder Status: Voiding Urinary Elimination: Voided - Exam General: Alert, Oriented, Cooperative, No Acute Distress Lungs: Clear to Auscultation, Normal Respiratory Effort Cardiovascular: Regular Rate, Regular Rhythm, No Murmurs Extremities: Normal Inspection, Normal Range of Motion, Non-Tender, No Pedal Edema, Normal Capillary Refill Skin: Warm, Dry, Intact Wound/Incisions: Other (unable to asses due to standing in nursery to be with infant.) Neurological: No New Focal Deficit, Normal Gait, Normal Speech, Normal Tone, Strength Equal Bilateral Psy/Mental Status: Alert, Normal Affect, Normal Mood - Problem List & Annotations (1) Supervision of normal IUP (intrauterine ) in multigravida SNOMED Code(s): 693325777, 619753498, 314570705 Code(s): Z34.80 - ENCOUNTER FOR SUPRVSN OF NORMAL , UNSP TRIMESTER Status: Acute Priority: High Current Visit: Yes Qualifiers: Trimester: third trimester Qualified Code(s): Z34.83 - Encounter for supervision of other normal , third trimester (2) Oligohydramnios antepartum SNOMED Code(s): 831342007 Code(s): O41.00X0 - OLIGOHYDRAMNIOS, UNSP TRIMESTER, NOT APPLICABLE OR UNSP Status: Acute Priority: High Current Visit: Yes Qualifiers: Fetus number: single or unspecified fetus Qualified Code(s): O41.00X0 - Oligohydramnios, unspecified trimester, not applicable or unspecified (3) delivery due to maternal disorder, delivered, curr hospitaliz SNOMED Code(s): 343563643 Code(s): O99.89 - OTH DISEASES AND CONDITIONS COMPL PREG/CHLDBRTH Status: Acute Priority: High Current Visit: Yes - Problem List Review Problem List Initiated/Reviewed/Updated: Yes - Plan Plan:: IOL for Oligohydramnios A: 33yo EDC 06/19/2018 36 4/7wks, O+, RI, GBS unkwn, MARTÍN 4.8cm, low FHT baseline 110 bpm P: Admit, pitocin induction, amp for GBS unkwn, anticipate , Dr Beard agrees with POC. PPD#1 A: VSS, AF, FF 2bu, lochia small, dressing dry/intact, jain to bsb, stood at bs x1. P: Routine pp plan PPD#2 A: VSS, AF, lochia small, standing in nursery, under bili lights, RN states having withdrawals due to OTC med use. P: Routine pp plan of care
[2018-05-29] MEDS: Docusate Sodium 100 MG Cap PO SCH (14:03)
== END 2018-05-29 16:45 | disposition home or self-care (01) | DRG 788 ==
LOC: MW.OBCHECK 15:53 → MW.OB 15:54 → MW.OBCHECK 17:48 → MW.OB 17:48 → OBSVTOIN 18:59 → MW.OB 05-27 20:53
PROVIDERS: ADMIT Obstetrics & Gynecology; ATTEND Obstetrics & Gynecology
PROC: 00HU33Z Insertion of Infusion Device into Spinal Canal, Percutaneous Approach (ICD-10-PCS; 2018-05-26)
PROC: 3E0R3BZ Introduction of Anesthetic Agent into Spinal Canal, Percutaneous Approach (ICD-10-PCS; 2018-05-26)
PROC: 3E033VJ Introduction of Other Hormone into Peripheral Vein, Percutaneous Approach (ICD-10-PCS; principal; 2018-05-27)
PROC: 10D00Z1 Extraction of Products of Conception, Low, Open Approach (ICD-10-PCS; principal; 2018-05-27)
DX: O41.03X0 Oligohydramnios, third trimester, not applicable or unspecified (principal); O99.62 Diseases of the digestive system complicating childbirth; Z3A.36 36 weeks gestation of pregnancy; Z37.0 Single live birth; K59.09 Other constipation; O76 Abnormality in fetal heart rate and rhythm complicating labor and delivery; O61.0 Failed medical induction of labor; Z87.440 Personal history of urinary (tract) infections
CPT/HCPCS: 36415; 51702; 76819; 76819-26; 85014; 85018; 85027; 86850; 86900; 86901; 87081; A9270-GY; J0290; J0690; J1885; J2001; J2270; J2590; J2704; J3010; J7030; J7050; J7120

== ENCOUNTER 2020-07-30 06:23 | Inpatient (IN) | payer MEDICAID ==
[2020-07-30] MEDS ORDERED: Ibuprofen 800 MG Tab PO PRN (06:39)
[2020-07-30] MEDS ORDERED: Lanolin 100% Cream 7 GM Tube TOP PRN (06:39)
[2020-07-30] MEDS ORDERED: Acetaminophen 500 MG Tab PO PRN ×2 (06:39)
[2020-07-30] MEDS ORDERED: oxyCODONE 5 MG Tab PO PRN (06:39)
[2020-07-30] MEDS ORDERED: Bisacodyl 10 MG Supp RECTAL PRN (06:39)
[2020-07-30] MEDS ORDERED: Benzocaine/Menthol 20%-0.5% Spray 78 GM Cannister TOP PRN (06:39)
[2020-07-30] MEDS ORDERED: Ibuprofen 400 MG Tab PO PRN (06:39)
[2020-07-30] MEDS ORDERED: Witch Hazel Medicated Pads 40/Jar TOP PRN (06:39)
[2020-07-30] MEDS ORDERED: Docusate Sodium 100 MG Cap PO PRN (06:39)
--- NOTE | 2020-07-30 06:39 | PCM.LDHP ---
L&D History of Present Illness - General Date of Service: 07/30/20 Admit Problem/Dx: Admission Diagnosis/Problem Admission Diagnosis/Problem Source of Information: Patient History Limitations: Reports: No Limitations - History of Present Illness Improves with: Reports: None Worsens with: Reports: None Associated Symptoms: Reports: N - Related Data Allergies/Adverse Reactions: Allergies Allergy/AdvReac Type Severity Reaction Status Date / Time No Known Allergies Allergy Verified 08/17/17 17:02 Past Medical History - Past Health History Medical/Surgical History: Denies Medical/Surgical History Cardiovascular History: Reports: Heart Murmur Other Cardiovascular History: heart murmur as child 'that closed as an early teen' Gastrointestinal History: Reports: Chronic Constipation - Infectious Disease History Infectious Disease History: Reports: Chicken Pox - Past Surgical History HEENT Surgical History: Reports: Oral Surgery Social & Family History - Family History Other Dermatologic Family History: CA, Hepatits Oncologic: Reports: Bone, Lymphoma, Prostate - Caffeine Use Caffeine Use: Reports: Coffee H&P Review of Systems - Review of Systems: Review Of Systems: See Below General: Reports: No Symptoms HEENT: Reports: No Symptoms Pulmonary: Reports: No Symptoms Cardiovascular: Reports: No Symptoms Gastrointestinal: Reports: No Symptoms Genitourinary: Reports: No Symptoms Musculoskeletal: Reports: No Symptoms Skin: Reports: No Symptoms Psychiatric: Reports: No Symptoms Neurological: Reports: No Symptoms Hematologic/Lymphatic: Reports: No Symptoms Immunologic: Reports: No Symptoms L&D Exam - Exam Exam: See Below - OB Specific Contraction Intensity: Moderate to Strong Movement: Active Heart Tones: Present Presentation: Vertex - Peña Score Peña Score Cervix Position: Anterior Peña Score Consistency: Soft Peña Score Effacement: >80% Peña Score Dilation: > 5 cm Peña Score Infant's Station: +1, +2 Peña Score Total: 13 - Exam General: Alert, Oriented HEENT: PERRLA, Conjunctiva Clear, EACs Clear, EOMI, Hearing Intact, Mucosa Moist & [place], Nares Patent, Normal Nasal Septum, Posterior Pharynx Clear, TMs Clear Neck: Supple, Trachea Midline Lungs: Clear to Auscultation, Normal Respiratory Effort Cardiovascular: Regular Rate, Regular Rhythm GI/Abdominal Exam: Normal Bowel Sounds, Soft, Non-Tender, No Organomegaly, No Distention, No Abnormal Bruit, No Mass, Pelvis Stable Rectal Exam: Normal Exam, Normal Rectal Tone Genitourinary: Normal external exam, Normal bimanual exam, Normal speculum exam Back Exam: Normal Inspection, Full Range of Motion Extremities: Normal Inspection, Normal Range of Motion, Non-Tender, No Pedal Edema, Normal Capillary Refill Skin: Warm, Dry, Intact Neurological: Cranial Nerves Intact, Reflexes Equal Bilateral Psychiatric: Alert, Normal Affect, Normal Mood Problem List Initiated/Reviewed/Updated: Yes Assessment/Plan Comment:: IUP 36+4 in active labor.
--- NOTE | 2020-07-31 08:35 | OR ---
SURGEON: Juan Luis Beard MD DATE OF PROCEDURE: 07/30/2020 DELIVERY NOTE: Ms. Gerard is para 2-0-3-2, her first one was delivered by section. Subsequently, she had a normal spontaneous vaginal delivery and 3 /miscarriages. The patient is followed in our office primarily by our nurse nocturnist physician service. She is 36+ 4. She was slated to have delivery. However, according to her, she started having contraction at 2 a.m. and it was tolerable contraction. Then she came to the hospital. At the time of the arrival, she was found to be complete-complete, vertex +2 with intact bag of water. I was called and, however, upon my arrival, delivery by nurses was accomplished of male fetus. score and weight are not available at this time of the dictation; however, the fetus was breathing well on its own. The placenta delivered spontaneous, complete, and intact without any problem, and there was no perineal, labial, or vaginal laceration. Estimated blood loss is 250 to 300 mL. heart rate, the limited amount of monitoring was category I. There was no complication into the delivery and labor process of this patient. CHARLETTE / OCTAVIO /[id number]
--- NOTE | 2020-07-31 13:13 | PCM.PNPP ---
- General Info Date of Service: 07/31/20 Admission Dx/Problem (Free Text): Admission Diagnosis/Problem Admission Diagnosis/Problem Subjective Update: 35yo G8 now [id number] s/p precipitated vaginal @ 36w3d. No complications otherwise. Doing well. Minimal bleeding. Pain well controlled. Baby by her bedside. Functional Status: Reports: Pain Controlled - Review of Systems General: Reports: No Symptoms HEENT: Reports: No Symptoms Pulmonary: Reports: No Symptoms Cardiovascular: Reports: No Symptoms Gastrointestinal: Reports: No Symptoms Genitourinary: Reports: No Symptoms Musculoskeletal: Reports: No Symptoms Skin: Reports: No Symptoms Neurological: Reports: No Symptoms Psychiatric: Reports: No Symptoms - General Info Date of Service: 07/31/20 - Patient Data Vital Signs - Most Recent: Last Vital Signs Temp 98.2 F 07/31/20 11:37 Pulse 68 07/31/20 11:37 Resp 16 07/31/20 11:37 BP 97/57 L 07/31/20 11:37 Pulse Ox 100 07/31/20 11:37 Lab Results - Last 24 Hours: Laboratory Results - last 24 hr 07/31/20 Range/Units 05:17 Hgb 10.5 L (12.0-16.0) g/dL Hct 31.2 L (36.0-46.0) % Med Orders - Current: Current Medications Acetaminophen (Acetaminophen 500 Mg Tab) 500 mg PO Q4H PRN PRN Reason: Pain Acetaminophen (Acetaminophen 500 Mg Tab) 1,000 mg PO Q4H PRN PRN Reason: Pain Benzocaine/Menthol (Benzocaine/Menthol 20%-0.5% [place] 78 Gm Cannister) 78 gm TOP ASDIRECTED PRN PRN Reason: Perineal Comfort Measure Bisacodyl (Bisacodyl 10 Mg Supp) 10 mg RECTAL ONETIME PRN PRN Reason: Constipation Docusate Sodium (Docusate Sodium 100 Mg Cap) 100 mg PO BID PRN PRN Reason: Constipation Emollient Ointment (Lanolin 100% Cream 7 Gm Tube) 0 gm TOP ASDIRECTED PRN PRN Reason: Sore Nipples Ibuprofen (Ibuprofen 400 Mg Tab) 400 mg PO Q4H PRN PRN Reason: Pain Ibuprofen (Ibuprofen 800 Mg Tab) 800 mg PO Q6H PRN PRN Reason: Pain Last Admin: 07/30/20 22:34 Dose: 800 mg Documented by: Oxycodone HCl (Oxycodone 5 Mg Tab) 5 mg PO Q2H PRN PRN Reason: Pain Witch Kirstin (Witch Kirstin Medicated Pads 40/Jar) 1 pad TOP ASDIRECTED PRN PRN Reason: comfort care - Interaction Infant Disposition, : [place] in Room with Family Infant Interaction: Holding Infant Support Person: - Recovery Exam Fundal Tone: Firm Fundal Level: 2 Fingerbreadths Below Umbilicus Fundal Placement: Midline Lochia Amount: Scant, Small Lochia Color: Rubra/Red Perineum Description: Intact, Minimal Bruising/Swelling Episiotomy/Laceration: None Bladder Status: Voiding Urinary Elimination: Voided - Exam General: Alert, Oriented Lungs: Normal Respiratory Effort Cardiovascular: Regular Rhythm GI/Abdominal Exam: Soft, Non-Tender Extremities: Normal Inspection Skin: Warm Psy/Mental Status: Alert, Normal Affect, Normal Mood - Problem List & Annotations (1) delivery SNOMED Code(s): 582211106, 116504736 Code(s): O60.10X0 - LABOR W DELIVERY, UNSP TRIMESTER, UNSP Status: Acute Priority: High Current Visit: Yes - Problem List Review Problem List Initiated/Reviewed/Updated: Yes - Assessment Assessment:: Precipitated at 36w3d GA. Otherwise uncomplicated delivery. Mom and baby are doing well. Ped hospitalist requested SW consult. - Plan Plan:: Continue with routine PP care. Plan to discharge tomorrow, once SW consult completed.
--- NOTE | 2020-08-01 08:26 | PCM.DCSUM1 ---
Discharge Summary - Hospital Course Free Text/Narrative:: Discharge home with . Follow up in the clinic in 6 weeks for routine plan of care; sooner, if needed. Diagnosis: Stroke: No Modified Bristol Scale: No Symptoms at All Modified Bristol Scale Score: 0 - Discharge Data Discharge Date: 08/01/20 Discharge Disposition: Home, Self-Care 01 Condition: Good - Referral to Home Health Primary Care Physician: PCP None - Patient Summary/Data Consults: Consultations 07/31/20 16:06 Consult to Physician [CONS] Routine - Patient Instructions Diet: Regular Diet as Tolerated, Drink 8-10+ Glasses/Day Activity: As Tolerated, No Strenuous Activities, Rest and Relax Today Driving: May Drive Today Showering/Bathing: May Shower Notify Provider of: Fever, Increased Pain, Swelling and Redness, Drainage, Nausea and/or Vomiting - Discharge Plan *PRESCRIPTION DRUG MONITORING PROGRAM REVIEWED*: Not Applicable *COPY OF PRESCRIPTION DRUG MONITORING REPORT IN PATIENT YARED: Not Applicable Prescriptions/Med Rec: Ibuprofen [Motrin] 800 mg PO Q6H PRN #90 tablet PRN Reason: Pain Home Medications: Home Meds Ibuprofen [Motrin] 800 mg PO Q6H PRN #90 tablet 08/01/20 [Rx] Oxygen Therapy Mode: Room Air Referrals: Carline Waterman CNM [Mid-] - 09/11/20 1:00 pm - Discharge Summary/Plan Comment DC Time >30 min.: Yes - General Info Date of Service: 08/01/20 Admission Dx/Problem (Free Text: Admission Diagnosis/Problem Admission Diagnosis/Problem Functional Status: Reports: Pain Controlled, Tolerating Diet, Ambulating, Urinating - Review of Systems General: Reports: No Symptoms HEENT: Reports: No Symptoms Pulmonary: Reports: No Symptoms Cardiovascular: Reports: No Symptoms Gastrointestinal: Reports: No Symptoms Genitourinary: Reports: No Symptoms Musculoskeletal: Reports: No Symptoms Skin: Reports: No Symptoms Neurological: Reports: No Symptoms Psychiatric: Reports: No Symptoms - Patient Data Vitals - Most Recent: Last Vital Signs Temp 98.7 F 07/31/20 16:51 Pulse 72 08/01/20 04:00 Resp 16 08/01/20 04:00 BP 113/58 L 08/01/20 04:00 Pulse Ox 97 08/01/20 04:00 Med Orders - Current: Current Medications Acetaminophen (Acetaminophen 500 Mg Tab) 500 mg PO Q4H PRN PRN Reason: Pain Acetaminophen (Acetaminophen 500 Mg Tab) 1,000 mg PO Q4H PRN PRN Reason: Pain Benzocaine/Menthol (Benzocaine/Menthol 20%-0.5% [place] 78 Gm Cannister) 78 gm TOP ASDIRECTED PRN PRN Reason: Perineal Comfort Measure Bisacodyl (Bisacodyl 10 Mg Supp) 10 mg RECTAL ONETIME PRN PRN Reason: Constipation Docusate Sodium (Docusate Sodium 100 Mg Cap) 100 mg PO BID PRN PRN Reason: Constipation Emollient Ointment (Lanolin 100% Cream 7 Gm Tube) 0 gm TOP ASDIRECTED PRN PRN Reason: Sore Nipples Ibuprofen (Ibuprofen 400 Mg Tab) 400 mg PO Q4H PRN PRN Reason: Pain Ibuprofen (Ibuprofen 800 Mg Tab) 800 mg PO Q6H PRN PRN Reason: Pain Last Admin: 07/30/20 22:34 Dose: 800 mg Documented by: Oxycodone HCl (Oxycodone 5 Mg Tab) 5 mg PO Q2H PRN PRN Reason: Pain Witch Kirstin (Witch Kirstin Medicated Pads 40/Jar) 1 pad TOP ASDIRECTED PRN PRN Reason: comfort care - Exam General: Reports: Alert, Oriented, Cooperative, No Acute Distress Lungs: Reports: Normal Respiratory Effort Cardiovascular: Reports: Regular Rate, Regular Rhythm GI/Abdominal Exam: Soft, Non-Tender (Female) Exam: Deferred Rectal (Female) Exam: Deferred Back Exam: Reports: Normal Inspection, Full Range of Motion Extremities: Normal Inspection, Normal Range of Motion, Non-Tender, No Pedal Edema, Normal Capillary Refill Skin: Reports: Warm, Dry, Intact Neurological: Reports: No New Focal Deficit, Normal Speech, Normal Tone, Strength Equal Bilateral, Sensation Intact Psy/Mental Status: Reports: Alert, Normal Affect, Normal Mood
== END 2020-08-01 15:12 | disposition home or self-care (01) | DRG 805 ==
LOC: MW.OB 06:23 → OBSVTOIN 06:39 → MW.OB 13:00
PROVIDERS: ADMIT Obstetrics & Gynecology; ATTEND Obstetrics & Gynecology
PROC: 10E0XZZ Delivery of Products of Conception, External Approach (ICD-10-PCS; principal; 2020-07-30)
DX: O62.3 Precipitate labor (principal); O60.14X0 Preterm labor third trimester with preterm delivery third trimester, not applicable or unspecified; Z37.0 Single live birth; Z3A.36 36 weeks gestation of pregnancy; Z20.822 Contact with and (suspected) exposure to COVID-19
CPT/HCPCS: 36415; 59409; 80305-QW; 85014; 85018; A9270-GY; U0002